=== PATIENT | male | born 2005 | race Hispanic/Latino ===

== ENCOUNTER 2025-06-05 15:49 | Emergency (ER) | payer SELFPAY ==
[2025-06-05] MEDS ORDERED: Ketorolac Tromethamine 30 MG (1 mL) VIAL ONE (16:36)
[2025-06-05] MEDS ORDERED: predniSONE 20 MG TAB ONE (16:36)
== END 2025-06-05 17:15 | disposition home or self-care (01) ==
LOC: CSHERS 15:49
DX: M54.6 Pain in thoracic spine (principal); Z55.6 Problems related to health literacy; X50.0XXA Overexertion from strenuous movement or load, initial encounter; Y92.39 Other specified sports and athletic area as the place of occurrence of the external cause
CPT/HCPCS: 71250; 96372; J1885; J7512